=== PATIENT | male | born 1965 | race Caucasian/White ===

== ENCOUNTER 2018-04-29 17:04 | Inpatient (IN) ==
[2018-04-29] MEDS ORDERED: IOPAMIDOL 100 ML BOTTLE IV ONE (17:05)
[2018-04-29] MEDS ORDERED: LACTATED RINGERS 1,000 ML IV ONE (17:25)
[2018-04-29] MEDS ORDERED: ACETAMINOPHEN 1,000 MG/100 ML BOTTLE IV ONE (17:31)
[2018-04-29] MEDS ORDERED: ONDANSETRON 4 MG/2 ML VIAL IV ONE ×2 (17:32→19:09)
--- NOTE | 2018-04-29 17:34 | Emergency Department Note ---
Abdominal Pain HPI - General Chief Complaint: Abdominal Pain Stated Complaint: flank pain Time Seen by Provider: 04/29/18 17:29 Source: patient Mode of arrival: ambulatory Limitations: no limitations - History of Present Illness HPI Narrative: This patient complains of anterior abdominal pain for the last day. He says it feels similar to when he had a kidney stone he does not have flank pain or localized pain to one side or the other. He has had a lot of nausea and vomiting. No diarrhea. - Related Data Previous Rx's Medication Instructions Recorded Hydrocodone/APAP 7.5/325Mg [[place] 1 tab PO Q4HP PRN #20 tab 04/11/17 7.5-325Mg] Lisinopril [Zestril] 20 mg PO QDAY #30 tab 04/11/17 Tamsulosin [Flomax] 0.4 mg PO HS #20 cap 04/11/17 HYDROcodone/APAP 10/325MG [[place] 1 tab PO Q4H PRN #20 tab 02/19/18 10-325Mg] Promethazine [Phenergan] 25 mg PO Q4-6HP PRN #15 tab 02/19/18 hydrALAZINE [Apresoline] 10 mg PO TID #90 tab 02/19/18 Allergies Allergy/AdvReac Type Severity Reaction Status Date / Time From TUMS Allergy Unknown RED ITCHY Uncoded 02/18/15 23:51 RASH/SOB Review of Systems All systems ED: reviewed and negative except as stated. Abdominal Pain PMH - Past Medical History Medical history: Reports: hyperlipidemia (Most recently was normal), hypertension, other (Urinary calculus, passed, 2017). Denies: cancer, CVA, DM, myocardial infarction - Social History Smoking status: Never smoker Physical Exam Limitations: no limitations General appearance: alert Head: atraumatic Eye: Present: normal appearance ENT: normal exam Neck: Present: normal inspection Chest: Present: normal inspection Respiratory: Present: normal lung sounds bilaterally Cardiovascular: Present: regular rate, normal rhythm, normal heart sounds Abdominal: Present: soft, distention, tenderness, normal bowel sounds. Absent: guarding, rebound, rigidity Abdominal tenderness: Present: diffuse, mild Neurological: Present: alert Psychiatric: Present: normal affect, normal mood Skin: Present: warm, dry, intact Course Vital Signs Temperature 98.4 F 08/13/18 17:05 Pulse Rate 78 04/29/18 17:05 Respiratory Rate 22 04/29/18 17:05 Blood Pressure 185/105 04/29/18 17:05 Pulse Oximetry (%) 98 04/29/18 17:05 Temperature 98.4 F 04/29/18 17:05 Pulse Rate 77 04/29/18 19:51 Respiratory Rate 22 04/29/18 17:05 Blood Pressure 188/101 04/29/18 19:42 Pulse Oximetry (%) 89 L 04/29/18 19:51 Abdominal Pain - MDM Narrative Medical decision making narrative: This patient has a high-grade small bowel obstruction ileum. I discussed case with Dr. Garcia and he will be admitted to the hospital. - Lab Data Lab results reviewed: Yes I reviewed the patient's lab results. Result diagrams: 04/29/18 17:33 04/29/18 17:33 Lab Results 04/29/18 04/29/18 04/29/18 Range/Units 17:33 17:33 18:18 WBC 14.1 H (4.5-11.0) K/mcL RBC 6.28 H (4.50-5.90) M/mcL Hgb 18.6 H (13.5-16.5) g/dL Hct 55.1 H (41.0-55.0) % POC Hct 53.0 (41.0-55.0) % MCV 87.7 (80.0-100.0) fL MCH 29.6 (26.0-34.0) pg MCHC 33.7 (31.0-36.0) g/dL RDW 13.5 (11.5-14.5) % Plt Count 313 (140-440) K/mcL MPV 7.7 (7.4-10.4) fL Gran % 87.7 H (38.0-78.0) % Lymph % (Auto) 6.4 L (15.5-49.0) % [place] % (Auto) 4.8 (1.0-12.0) % Eos % (Auto) 1.1 (0.0-7.0) % Baso % (Auto) 0 (0.0-2.0) % Gran # 12.4 H (1.8-8.0) K/mcL Lymph # (Auto) 0.9 L (1.5-4.8) K/mcL [place] # (Auto) 0.7 (0.1-0.9) K/mcL Eos # (Auto) 0.2 (0.0-0.7) K/mcL Baso # (Auto) 0 (0.0-0.3) K/mcL POC Sodium 136 (133-145) mmol/L Sodium 135 (133-145) mmol/L POC Potassium 3.4 (3.3-5.1) mmol/L Potassium 3.2 L (3.3-5.1) mmol/L POC Chloride 94 L (96-108) mmol/L Chloride 90 L (96-108) mmol/L Carbon Dioxide 31 H (22-30) mmol/L POC Total CO2 30 (22-30) mmol/L Anion Gap 14.0 (8-16) POC BUN 14 (6-20) mg/dl BUN 12 (6-20) mg/dl Creatinine 1.0 (0.7-1.2) mg/dl POC Creatinine 1.0 (0.7-1.2) mg/dl GFR Calculation 86 Glucose 118 H (70-105) mg/dL POC Glucose 107 H (70-105) mg/dL Calcium 9.8 (8.6-10.4) mg/dl POC WB Ioniz Calcium 0.93 L (1.16-1.32) mmol/L Total Bilirubin 1.3 H (0.0-1.0) mg/dL AST 22 (0-37) U/l ALT 16 (0-40) U/l Alkaline Phosphatase 77 (39-117) U/L Total Protein 8.7 H (5.9-8.4) gm/dL Albumin 4.9 (3.2-5.2) gm/dL Globulin 3.8 H (2.2-3.7) gm/dL Albumin/Globulin Ratio 1.3 (1.0-2.3) Lipase 18 (7-60) U/L Urine Color Urine Appearance Urine pH (5.0-9.0) Ur Specific [place] (1.000-1.035) Urine Protein (NEG) mg/dL Urine Glucose (UA) (NEG) mg/dL Urine Ketones (NEG) mg/dL Urine Occult Blood (<0.03) mg/dL Urine Nitrate (NEG) Urine Bilirubin (NEG) mg/dL Urine Urobilinogen (NEG) mg/dL Ur Leukocyte Esterase (NEG) /uL Urine RBC (0-1) /hpf Urine WBC (0-4) /hpf Ur Squamous Epith Cells (0-4) /hpf Urine Bacteria (0) /hpf Urine Mucus (0) /hpf 04/29/18 Range/Units 19:10 WBC (4.5-11.0) K/mcL RBC (4.50-5.90) M/mcL Hgb (13.5-16.5) g/dL Hct (41.0-55.0) % POC Hct (41.0-55.0) % MCV (80.0-100.0) fL MCH (26.0-34.0) pg MCHC (31.0-36.0) g/dL RDW (11.5-14.5) % Plt Count (140-440) K/mcL MPV (7.4-10.4) fL Gran % (38.0-78.0) % Lymph % (Auto) (15.5-49.0) % [place] % (Auto) (1.0-12.0) % Eos % (Auto) (0.0-7.0) % Baso % (Auto) (0.0-2.0) % Gran # (1.8-8.0) K/mcL Lymph # (Auto) (1.5-4.8) K/mcL [place] # (Auto) (0.1-0.9) K/mcL Eos # (Auto) (0.0-0.7) K/mcL Baso # (Auto) (0.0-0.3) K/mcL POC Sodium (133-145) mmol/L Sodium (133-145) mmol/L POC Potassium (3.3-5.1) mmol/L Potassium (3.3-5.1) mmol/L POC Chloride (96-108) mmol/L Chloride (96-108) mmol/L Carbon Dioxide (22-30) mmol/L POC Total CO2 (22-30) mmol/L Anion Gap (8-16) POC BUN (6-20) mg/dl BUN (6-20) mg/dl Creatinine (0.7-1.2) mg/dl POC Creatinine (0.7-1.2) mg/dl GFR Calculation Glucose (70-105) mg/dL POC Glucose (70-105) mg/dL Calcium (8.6-10.4) mg/dl POC WB Ioniz Calcium (1.16-1.32) mmol/L Total Bilirubin (0.0-1.0) mg/dL AST (0-37) U/l ALT (0-40) U/l Alkaline Phosphatase (39-117) U/L Total Protein (5.9-8.4) gm/dL Albumin (3.2-5.2) gm/dL Globulin (2.2-3.7) gm/dL Albumin/Globulin Ratio (1.0-2.3) Lipase (7-60) U/L Urine Color Yellow Urine Appearance Clear Urine pH 7.0 (5.0-9.0) Ur Specific [place] 1.018 (1.000-1.035) Urine Protein 30 A (NEG) mg/dL Urine Glucose (UA) Negative (NEG) mg/dL Urine Ketones 5/tr A (NEG) mg/dL Urine Occult Blood Neg (<0.03) mg/dL Urine Nitrate Neg (NEG) Urine Bilirubin Neg (NEG) mg/dL Urine Urobilinogen Neg (NEG) mg/dL Ur Leukocyte Esterase Neg (NEG) /uL Urine RBC 2 H (0-1) /hpf Urine WBC 3 (0-4) /hpf Ur Squamous Epith Cells 0 (0-4) /hpf Urine Bacteria 0 (0) /hpf Urine Mucus Mod (0) /hpf - Radiology Data Radiology results reviewed: Yes I reviewed the patient's radiology results. Disposition Pt seen by [facility]/PA only: No Clinical Impression: Small bowel obstruction Disposition: Xfer As Inpt ([facility]) Condition: Good Time of Disposition: 20:06
[2018-04-29 18:10] LABS: Basophils # (Auto) 0 K/mcL (0.0-0.3); Basophils % (Auto) 0 % (0.0-2.0); Eosinophils # (Auto) 0.2 K/mcL (0.0-0.7); Eosinophils % (Auto) 1.1 % (0.0-7.0); Granulocytes % (Auto) 87.7 % (38.0-78.0); Lymphocytes # (Auto) 0.9 K/mcL (1.5-4.8); Lymphocytes % (Auto) 6.4 % (15.5-49.0); Mean Cell Volume 87.7 fL (80.0-100.0); Mean Corpuscular HGB Conc 33.7 g/dL (31.0-36.0); Mean Corpuscular Hemoglobin 29.6 pg (26.0-34.0); Monocytes # (Auto) 0.7 K/mcL (0.1-0.9); Monocytes % (Auto) 4.8 % (1.0-12.0); Platelet Count 313 K/mcL (140-440); RBC 6.28 M/mcL (4.50-5.90); Red Cell Distribution Width 13.5 % (11.5-14.5)
[2018-04-29 18:35] LABS: ALT/SGPT 16 U/l (0-40); Albumin 4.9 gm/dL (3.2-5.2); Albumin/Globulin Ratio 1.3 (1.0-2.3); Alkaline Phosphatase 77 U/L (39-117); Blood Urea Nitrogen 12 mg/dl (6-20); Lipase 18 U/L (7-60)
[2018-04-29] MEDS ORDERED: PROMETHAZINE 25 MG/ML VIAL IV ONE (19:09)
[2018-04-29] MEDS ORDERED: PIPERACILLIN SODIUM/TAZOBACTAM 3.375 GM in DEXTROSE 5% IN WATER 50 ML IV ONE (19:56)
[2018-04-29 20:01] LABS: Appearance,Urine CLEAR; Bacteria,Urine 0 /hpf (0); Bilirubin,Urine NEG (NEG); Color,Urine YELLOW; Glucose,Urine (UA) NEGATIVE (NEG); Leukocyte Esterase,Urine NEG /uL (NEG); Mucus,Urine MOD /hpf (0); Protein,Urine 30 mg/dL (NEG); Specific Gravity,Urine 1.018 (1.000-1.035); Urine Blood NEG mg/dL (<0.03); Urine RBC 2 /hpf (0-1); Urine Squamous Epithelial Cell 0 /hpf (0-4); Urine WBC 3 /hpf (0-4); Urobilinogen,Urine NEG (NEG)
[2018-04-29] MEDS ORDERED: ONDANSETRON 4 MG/2 ML VIAL IV PRN (21:14)
[2018-04-29] MEDS ORDERED: POTASSIUM CHLORIDE 40 MEQ in DEXTROSE 5% IN WATER 500 ML IV ONE (21:31)
[2018-04-29] MEDS ORDERED: BENZOCAINE 1 SPRAY BOTTLE TOPICAL PRN (21:42)
[2018-04-29] MEDS ORDERED: hydrALAZINE 20 MG/ML VIAL IV SCH (21:45)
[2018-04-29] MEDS: 0.9 % SODIUM CHLORIDE 1,000 ML IV SCH (22:05)
--- NOTE | 2018-04-29 22:11 | General Surg History&Physical ---
History of Present Illness Patient information: Note initiated : 04/29/18 at 10:07 pm Service Date, if different from initiated Date: [] Patient: Apolinar Nolen a 52 y/o M admitted on 04/29/18 for flank pain. Chief Complaint: [] HPI: Mr. Nolen is a 52 year old M admitted with possible distal small bowel obstruction. The patient had acute onset of right sided mid abdominal pain about 2:30 this morning. The pain increased in intensity. He later developed nausea and vomiting about noon and had 10 episodes of vomiting. He last had flatus about 6 AM. He has not had a bowel movement. He has no prior history of abdominal operations and he has no recent weight loss. Patient was seen in the emergency room with a tender abdomen. He was noted to have multiple dilated loops of small bowel which ends in the terminal ileum. There is gas and stool in the colon extending down to the rectum. Review of Systems - Genitourinary other (history of kidney stones) - Musculoskeletal back pain (history of chronic low back pain) Past History Past medical history: Multiple kidney stones Low back pain due to disc disease Hypertension Past surgical history: Microdisc surgery L3-4 level Past family history: Father age 77 due to complications of COPD Mother age 42 due to cirrhosis of the liver Past social history: Never tobacco use Occasional alcohol use Occasional marijuana use Medications and Allergies Home Medications Medication Instructions Recorded Confirmed Type Hydrocodone/APAP 7.5/325Mg [[place] 1 tab PO Q4HP PRN #20 tab 04/11/17 04/29/18 Rx 7.5-325Mg] Lisinopril [Zestril] 20 mg PO QDAY #30 tab 04/11/17 04/29/18 Rx HYDROcodone/APAP 10/325MG [[place] 1 tab PO Q4H PRN #20 tab 02/19/18 04/29/18 Rx 10-325Mg] Promethazine [Phenergan] 25 mg PO Q4-6HP PRN #15 tab 02/19/18 04/29/18 Rx hydrALAZINE [Apresoline] 10 mg PO TID #90 tab 02/19/18 04/29/18 Rx Allergies Allergy/AdvReac Type Severity Reaction Status Date / Time From TUMS Allergy Unknown RED ITCHY Uncoded 02/18/15 23:51 RASH/SOB Exam Temp Pulse Resp BP Pulse Ox 98.2 F 79 28 H 163/111 94 04/29/18 21:36 04/29/18 21:36 04/29/18 21:36 04/29/18 21:38 04/29/18 21:36 - General physical appearance well developed, well nourished, no distress - Eyes PERRL, normal ocular movement - ENT normal pinna, normal nares, normal mucosa, no hearing loss, no congestion - Head Head exam IM: Present: atraumatic, normocephalic - Neck no masses, no bruits, trachea midline, no lymphadectomy, no venous distension - Cardiovascular Cardiovascular exam IM: Present: normal rate and rhythm, RRR, +S1, +S2. Absent : JVD, tachycardia - Respiratory normal expansion, normal respiratory effort, clear to auscultation - Abdomen Abdomen: Present: soft, tender (tenderness and mid abdomen with mild distention ; good active bowel sounds; no palpable masses), bowel sounds Hernia: Present: none - Genitourinary Present: normal penis with no external lesions - Integumentary Present: no rash, no growths, no abnormal pigmentation - Neurologic Present: normal coordination, normal sensation - Musculoskeletal Present: normal gait, normal posture - Psychiatric Present: oriented to time, oriented to person, oriented to place, speech is normal, memory intact Assessment and Plan (1) Small bowel obstruction Nasogastric decompression IV hydration with saline IV analgesics Start Zosyn 3.375 g IV every 6 Reglan 10 mg IV every 6 Follow-up abdominal series in the morning Status: Acute (2) Hypertension, essential, benign Hydralazine 10 mg IV every 4 hours as needed for blood pressure control Status: Acute
[2018-04-29] MEDS ORDERED: hydrALAZINE 20 MG/ML VIAL IV PRN (22:14)
[2018-04-29] MEDS ORDERED: LORazepam 2 MG/ML VIAL IV PRN (22:17)
[2018-04-29] MEDS ORDERED: hydrALAZINE 20 MG/ML VIAL ONE (22:39)
[2018-04-29] MEDS: HYDROmorphone 2 MG/ML VIAL IV PRN (22:46)
[2018-04-29] MEDS: 0.9 % SODIUM CHLORIDE 10 ML SYRINGE IV SCH (22:51)
[2018-04-30] MEDS: METOCLOPRAMIDE 10 MG/2 ML VIAL IV SCH ×5 (00:19→23:35)
[2018-04-30] MEDS: HYDROmorphone 2 MG/ML VIAL IV PRN ×4 (03:35→23:39)
[2018-04-30] MEDS: PIPERACILLIN SODIUM/TAZOBACTAM 3.375 GM in DEXTROSE 5% IN WATER 50 ML IV SCH ×5 (04:00→23:37)
[2018-04-30] MEDS: 0.9 % SODIUM CHLORIDE 10 ML SYRINGE IV SCH ×4 (05:18→23:41)
[2018-04-30 06:47] LABS: Basophils # (Auto) 0 K/mcL (0.0-0.3); Basophils % (Auto) 0.1 % (0.0-2.0); Eosinophils # (Auto) 0.1 K/mcL (0.0-0.7); Eosinophils % (Auto) 0.7 % (0.0-7.0); Lymphocytes # (Auto) 0.7 K/mcL (1.5-4.8); Lymphocytes % (Auto) 5.2 % (15.5-49.0); Mean Cell Volume 88.3 fL (80.0-100.0); Mean Corpuscular HGB Conc 33.6 g/dL (31.0-36.0); Mean Corpuscular Hemoglobin 29.7 pg (26.0-34.0); Monocytes # (Auto) 0.9 K/mcL (0.1-0.9); Platelet Count 288 K/mcL (140-440); Red Cell Distribution Width 13.7 % (11.5-14.5)
--- NOTE | 2018-04-30 06:58 | XRay Report ---
CLINICAL INFORMATION: NG placement COMPARISON: None. FINDINGS: NG tube overlies the gastric fundus. Stomach, duodenum and jejunum are mildly dilated with the distal small bowel and colon are decompressed. No free air or soft tissue mass. Minimal residual contrast seen in the upper collecting systems from recent CT. IMPRESSION: Partial small bowel obstruction pattern - also noted on abdominal CT. NG tube overlying the gastric fundus. Consider advancing the tube 9 cm Interpreted and Authenticated by: Chris Finney 04/30/18
[2018-04-30] MEDS: PANTOPRAZOLE 40 MG VIAL IV SCH ×2 (07:05→18:04)
[2018-04-30 07:19] LABS: ALT/SGPT 13 U/l (0-40); Albumin 3.9 gm/dL (3.2-5.2); Albumin/Globulin Ratio 1.2 (1.0-2.3); Alkaline Phosphatase 62 U/L (39-117); Bilirubin,Direct < 0.2 mg/dL (0.0-0.3); Blood Urea Nitrogen 12 mg/dl (6-20); Gamma Glutamyl Transpeptidase 16 U/L (8-61); Uric Acid 5.9 mg/dL (2.5-8.0)
[2018-04-30 07:38] LABS: Erythrocyte Sedimentation Rate 7 mm/hr (0-15)
[2018-04-30] MEDS ORDERED: ENOXAPARIN 40 MG/0.4 ML SYRINGE SQ SCH (09:00)
--- NOTE | 2018-04-30 09:05 | Cat Scan Report ---
CLINICAL INFORMATION: Abdominal pain and distention COMPARISON: 02/18/[address] TECHNIQUE: Following enteric contrast, 80 cc of Isovue-300 were injected intravenously, and 60 seconds later, 0.625 mm helical slices were obtained from the mid heart through the subtrochanteric regions. Following reconstruction, 2.5 mm sagittal, coronal and axial reformatted images were processed and reviewed at bone, lung and soft tissue windows. Five minutes later, 0.625 mm helical slices were obtained from the mid heart through the kidneys and viewed at soft tissue windows.The exam was performed using radiation dose optimization techniques including, but not limited to, automated exposure control, adjustment of the mA and/or kV according to patient size and use of iterative reconstruction technique. FINDINGS: Lung bases show no abnormality. No effusion. Small hiatal hernia again noted. Images through the abdomen show minimal, stable fatty change within the liver. An 8 mm simple cyst in the subdiaphragmatic left hepatic lobe is unchanged - no significant hepatic abnormality. The gallbladder and bile ducts are normal - CBD is 5 mm. A 1 cm simple cyst anterior cortex mid right kidney is stable. A 5 mm nonobstructing stone inferior calyx the left kidney is again noted. Both adrenal glands, spleen, pancreas and aorta, including aortic branches, are normal in size, configuration and attenuation without focal lesion. Images through the pelvis show urinary bladder and prostate be normal. Small focal calcification in the left seminal vesicle demonstrates long-term stability. The stomach, duodenum and jejunum are moderately dilated to an abrupt transition point in the left lower quadrant (axial image 14, coronal image 61 and sagittal image 84). The small bowel and colon, distal to the transition point, are markedly decompressed. The appendix is unremarkable. Moderate free fluid in the deep true pelvis, intermesentery, perihepatic and perisplenic regions compatible with third spacing. No evidence of free intraperitoneal air. No adenopathy. Bone windows show no osseous abnormality IMPRESSION: 1. High-grade distal jejunal obstruction due to a stricture or adhesions in the left lower quadrant of the false pelvis. Moderate free intraperitoneal fluid compatible with third spacing. No free air. 2. Small hiatal hernia 3. 5 mm nonobstructing stone inferior calyx left kidney - stable Interpreted and Authenticated by: Chris Finney 04/30/18
--- NOTE | 2018-04-30 12:31 | General Surgery Progress Note ---
Subjective Patient reports: still having pain, no flatus, no bowel movement, afebrile Narrative: Note initiated : 04/30/18 at 12:29 pm Service Date, if different from initiated Date: [] Patient: Apolinar Nolen 52 y/o M admitted on 04/29/18 for Flank Pain/Small Bowel Obstruction. Chief Complaint: [Patient crampy abdominal pain throughout the night. There appears to be more gas in the colon, so a small bowel follow-through was done. After 3 hours. The contrast is still in the distal small bowel with decompressed terminal ileum. Patient is severely symptomatic and he is counseled for exploratory laparotomy for complete bowel obstruction.] Objective Temp Pulse Resp BP Pulse Ox 98.2 F 74 18 152/82 95 04/30/18 12:00 04/30/18 03:56 04/30/18 12:00 04/30/18 12:00 04/30/18 12:00 - Additional Data Intake & Output - Last 24 hours: Intake & Output 04/28/18 04/29/18 04/30/18 05/01/18 05:59 05:59 05:59 05:59 Intake Total 1200 / 1200 Output Total 500 / 500 400 / 400 Balance 700 / 700 -400 / -400 Weight 172 lb 8 oz - General physical appearance moderate distress, moderate pain - Eyes PERRL, normal ocular movement - ENT normal pinna, normal nares, normal mucosa, no hearing loss, no congestion - Neck no masses, no bruits, trachea midline, no lymphadectomy, no venous distension - Respiratory normal expansion, normal respiratory effort, clear to percussion, clear to auscultation - Cardiovascular Cardiovascular exam: Present: normal rate and rhythm, RRR, +S1, +S2, tachycardia. Absent: JVD, systolic murmur - Abdomen tender (tender lower abdomen and previous suprapubic and right lower quadrant; a few active bowel sounds; more prominent distention noted) - Integumentary no rash, no growths, no abnormal pigmentation - Neurologic normal coordination, normal sensation - Musculoskeletal normal gait, normal posture - Psychiatric oriented to time, oriented to person, oriented to place, speech is normal, memory intact - Labs 04/30/18 05:28 04/30/18 05:28 Diabetes panel 04/29/18 04/30/18 Range/Units 17:33 05:28 Sodium 135 135 (133-145) mmol/L Potassium 3.2 L 3.6 (3.3-5.1) mmol/L Chloride 90 L 96 (96-108) mmol/L Carbon Dioxide 31 H 27 (22-30) mmol/L BUN 12 12 (6-20) mg/dl Creatinine 1.0 1.0 (0.7-1.2) mg/dl Glucose 118 H 152 H (70-105) mg/dL Calcium 9.8 8.7 (8.6-10.4) mg/dl AST 22 17 (0-37) U/l ALT 16 13 (0-40) U/l Alkaline Phosphatase 77 62 (39-117) U/L Total Protein 8.7 H 7.1 (5.9-8.4) gm/dL Albumin 4.9 3.9 (3.2-5.2) gm/dL Triglycerides 67 (<150) mg/dl Calcium panel 04/29/18 04/30/18 Range/Units 17:33 05:28 Calcium 9.8 8.7 (8.6-10.4) mg/dl Phosphorus 3.6 (2.7-4.5) mg/dL Albumin 4.9 3.9 (3.2-5.2) gm/dL Pituitary panel 04/29/18 04/30/18 Range/Units 17:33 05:28 Sodium 135 135 (133-145) mmol/L Potassium 3.2 L 3.6 (3.3-5.1) mmol/L Chloride 90 L 96 (96-108) mmol/L Carbon Dioxide 31 H 27 (22-30) mmol/L BUN 12 12 (6-20) mg/dl Creatinine 1.0 1.0 (0.7-1.2) mg/dl Glucose 118 H 152 H (70-105) mg/dL Calcium 9.8 8.7 (8.6-10.4) mg/dl Adrenal panel 04/29/18 04/30/18 Range/Units 17:33 05:28 Sodium 135 135 (133-145) mmol/L Potassium 3.2 L 3.6 (3.3-5.1) mmol/L Chloride 90 L 96 (96-108) mmol/L Carbon Dioxide 31 H 27 (22-30) mmol/L BUN 12 12 (6-20) mg/dl Creatinine 1.0 1.0 (0.7-1.2) mg/dl Glucose 118 H 152 H (70-105) mg/dL Calcium 9.8 8.7 (8.6-10.4) mg/dl Total Bilirubin 1.3 H 1.2 H (0.0-1.0) mg/dL AST 22 17 (0-37) U/l ALT 16 13 (0-40) U/l Alkaline Phosphatase 77 62 (39-117) U/L Total Protein 8.7 H 7.1 (5.9-8.4) gm/dL Albumin 4.9 3.9 (3.2-5.2) gm/dL Assessment and Plan (1) Small bowel obstruction Status: Acute Assessment and plan: Patient has clinical total obstruction and is counseled for exploratory laparotomy. This has been scheduled and will be done later today. Current Visit: Yes (2) Hypertension, essential, benign Status: Acute Current Visit: No - Time Spent With Patient Total time spent is greater than 50% in coordination of care (as documented) at patient's floor/unit and/or counseling patient:
--- NOTE | 2018-04-30 12:45 | XRay Report ---
CLINICAL INFORMATION: Follow-up distal small bowel obstruction COMPARISON: None. FINDINGS: Stomach, duodenum and proximal jejunum are moderately dilated and contain air-fluid levels in the upright film. The distal small bowel and colon are relatively decompressed. No free air, soft tissue mass, organomegaly or pathologic calcification. NG tube overlies the GE junction IMPRESSION: High-grade partial small bowel obstruction of the distal jejunum. No change. NG tube overlying the GE junction - consider advancing tube 10 cm Interpreted and Authenticated by: Chris Finney 04/30/18
[2018-04-30] MEDS: 0.9 % SODIUM CHLORIDE 1,000 ML IV SCH ×3 (13:46→17:37)
[2018-04-30] MEDS ORDERED: DIATRIZOATE MEGLU/DIATRIZO SOD 30 ML BOTTLE PO ONE (13:54)
--- NOTE | 2018-04-30 14:01 | XRay Report ---
CLINICAL INFORMATION: Distal jejunal obstruction COMPARISON: Abdomen and pelvic CT from 04/29/2018. TECHNIQUE: Following service member films, water-soluble contrast was administered via NG tube and serial imaging was obtained for the next 2.5 hours. FINDINGS: The stomach, duodenum and multiple loops of jejunum are moderately dilated. A two hours and 30 minutes the ileum is not yet opacified. Findings are compatible with high-grade small bowel obstruction at the distal jejunal level IMPRESSION: High-grade small bowel obstruction at the the distal jejunal level. Transition point is in the left lower quadrant false pelvic region on CT Interpreted and Authenticated by: Chris Finney 04/30/18
[2018-04-30] MEDS ORDERED: NEOSTIGMINE 1 MG/ML VIAL IV ONE (14:55)
[2018-04-30] MEDS ORDERED: ONDANSETRON 4 MG/2 ML VIAL IV ONE (14:55)
[2018-04-30] MEDS ORDERED: LIDOCAINE HCL/PF 100 MG/5 ML SYRINGE IV ONE (14:55)
[2018-04-30] MEDS ORDERED: KETAMINE 100 MG/ML ML IV ONE (14:55)
[2018-04-30] MEDS ORDERED: NALBUPHINE 10 MG/ML AMPUL IV ONE (14:55)
[2018-04-30] MEDS ORDERED: DEXAMETHASONE 10 MG/ML VIAL IV ONE (14:55)
[2018-04-30] MEDS ORDERED: PROPOFOL 200 MG/20 ML VIAL IV ONE (14:55)
[2018-04-30] MEDS ORDERED: DOXAPRAM HCL 20 MG/ML IV ONE (14:55)
[2018-04-30] MEDS ORDERED: ROCURONIUM 10 MG/ML ML IV ONE (14:55)
[2018-04-30] MEDS ORDERED: fentaNYL 100 MCG/2 ML VIAL IV ONE (14:55)
[2018-04-30] MEDS ORDERED: MIDAZOLAM 2 MG/2 ML VIAL IV ONE (14:55)
[2018-04-30] MEDS ORDERED: GLYCOPYRROLATE 0.2 MG/ML VIAL IV ONE (14:55)
--- NOTE | 2018-04-30 15:55 | Brief Operative Note ---
Date of procedure: 04/30/18 Pre-op diagnosis: SMALL BOWEL OBSTRUCTION Post-op diagnosis: other (SMALL BOWEL OBSTRUCTION DUE TO ADHESIONS) Procedure: SMALL BOWEL ADHESIOLYSIS Grafts/Implants: Yes Anesthesia: GETA Findings: SINGLE ADHESIVE BAND IN MID JEJUNUM Complications: none Surgeon: Nadeen Garcia Estimated blood loss (cc): 10 Specimens Removed/Pathology: none sent Condition: stable Disposition: PACU
[2018-04-30] MEDS ORDERED: ONDANSETRON 4 MG/2 ML VIAL IV PRN (17:25)
[2018-04-30] MEDS ORDERED: LORazepam 2 MG/ML VIAL IV PRN (17:25)
[2018-04-30] MEDS: hydrALAZINE 20 MG/ML VIAL IV PRN ×2 (19:28→23:36)
[2018-04-30] MEDS: BENZOCAINE 1 SPRAY BOTTLE TOPICAL PRN (23:45)
[2018-05-01] MEDS: 0.9 % SODIUM CHLORIDE 1,000 ML IV SCH ×3 (02:07→17:41)
[2018-05-01] MEDS: HYDROmorphone 2 MG/ML VIAL IV PRN ×3 (04:35→14:33)
[2018-05-01] MEDS: hydrALAZINE 20 MG/ML VIAL IV PRN ×2 (05:59→17:55)
[2018-05-01] MEDS: PIPERACILLIN SODIUM/TAZOBACTAM 3.375 GM in DEXTROSE 5% IN WATER 50 ML IV SCH ×3 (05:59→17:42)
[2018-05-01] MEDS: METOCLOPRAMIDE 10 MG/2 ML VIAL IV SCH ×3 (05:59→17:40)
[2018-05-01] MEDS: 0.9 % SODIUM CHLORIDE 10 ML SYRINGE IV SCH ×3 (06:00→22:02)
[2018-05-01 07:51] LABS: Basophils # (Auto) 0 K/mcL (0.0-0.3); Basophils % (Auto) 0.1 % (0.0-2.0); Eosinophils # (Auto) 0.1 K/mcL (0.0-0.7); Eosinophils % (Auto) 0.6 % (0.0-7.0); Granulocytes % (Auto) 87.5 % (38.0-78.0); Lymphocytes # (Auto) 0.7 K/mcL (1.5-4.8); Lymphocytes % (Auto) 5.4 % (15.5-49.0); Mean Cell Volume 87.6 fL (80.0-100.0); Mean Corpuscular HGB Conc 33.8 g/dL (31.0-36.0); Mean Corpuscular Hemoglobin 29.6 pg (26.0-34.0); Monocytes # (Auto) 0.8 K/mcL (0.1-0.9); Monocytes % (Auto) 6.4 % (1.0-12.0); Platelet Count 266 K/mcL (140-440); Red Cell Distribution Width 13.6 % (11.5-14.5)
[2018-05-01] MEDS: PANTOPRAZOLE 40 MG VIAL IV SCH ×3 (08:14→17:40)
--- NOTE | 2018-05-01 08:23 | Operative Note ---
DATE OF OPERATION: 04/30/2018 PREOPERATIVE DIAGNOSIS: Small bowel obstruction. POSTOPERATIVE DIAGNOSIS: Small bowel obstruction due to adhesions. PROCEDURE: Exploratory laparotomy with small bowel adhesiolysis. SURGEON: Nadeen Garcia MD FINDINGS: Adhesions in the mid jejunum causing a near total obstruction with normal decompressed distal bowel and markedly dilated proximal bowel with a large volume of fluid in the stomach. DESCRIPTION OF PROCEDURE: Under general anesthesia, the patient's abdomen was prepped and draped in a sterile field. Time-out procedure was carried out as per protocol. Lower midline incision was made. A large volume of fluid was encountered upon entering the peritoneal cavity. This fluid was clear. The small bowel was gently pulled through the open incision and there were two distinct sizes of small bowel with some major dilation of the proximal bowel and total decompression of the distal bowel. The bowel was started at the ileocecal valve and followed proximally. At about mid gut level there was an adhesion that was lysed and this released the area of obstruction. The bowel proximal to this was dilated and edematous. This was followed to the ligament of Treitz. No other pathology was noted. The nasogastric tube was positioned in the stomach and 2000 mL of liquid was removed. Sponge, needle, instrument blade counts were verified as correct. The mesentery was inspected and was normal. The retroperitoneum appeared to be normal. The colon was normal to palpation. The fascia and peritoneum were closed with a running locking #1 Prolene. Subcutaneous tissue was closed with running 2-0 Monocryl. Skin was closed with bang. Tegaderm dressing was placed. The patient tolerated the procedure well. He was awakened, transferred to a bed and taken to the postanesthetic care unit in stable, satisfactory condition. LCS:ambreen Job ID: [id number] Doc ID: [id number] Nadeen Garcia M.D.
[2018-05-01 09:06] LABS: Basophils # (Auto) 0 K/mcL (0.0-0.3); Basophils % (Auto) 0.1 % (0.0-2.0); Eosinophils # (Auto) 0 K/mcL (0.0-0.7); Eosinophils % (Auto) 0.1 % (0.0-7.0); Granulocytes % (Auto) 84.6 % (38.0-78.0); Lymphocytes # (Auto) 0.9 K/mcL (1.5-4.8); Lymphocytes % (Auto) 7.2 % (15.5-49.0); Mean Cell Volume 89.7 fL (80.0-100.0); Mean Corpuscular HGB Conc 33.1 g/dL (31.0-36.0); Mean Corpuscular Hemoglobin 29.7 pg (26.0-34.0); Platelet Count 301 K/mcL (140-440); RBC 5.46 M/mcL (4.50-5.90); Red Cell Distribution Width 14.1 % (11.5-14.5)
[2018-05-01 09:35] LABS: ALT/SGPT 10 U/l (0-40); Albumin 3.5 gm/dL (3.2-5.2); Albumin/Globulin Ratio 1.3 (1.0-2.3); Alkaline Phosphatase 46 U/L (39-117); Bilirubin,Direct < 0.2 mg/dL (0.0-0.3); Blood Urea Nitrogen 18 mg/dl (6-20); Gamma Glutamyl Transpeptidase 9 U/L (8-61)
--- NOTE | 2018-05-01 17:50 | General Surgery Progress Note ---
Subjective Patient reports: feels better, still having pain, no flatus, no bowel movement, afebrile Narrative: Note initiated : 05/01/18 at 5:49 pm Service Date, if different from initiated Date: [] Patient: Apolinar Nolen 52 y/o M admitted on 04/29/18 for Laparotomy Exploration General, Small Bowel Obstru. Chief Complaint: [patient is stable. He has anticipated incisional pain but it is well controlled with analgesics. He does not have any chest discomfort or shortness of breath. He has not had flatus yet. He still had significant NG output. White blood count is 12.4. Electrolytes are normal.] Objective Temp Pulse Resp BP Pulse Ox 99.4 F H 105 H 16 175/92 90 05/01/18 14:34 05/01/18 14:34 05/01/18 14:34 05/01/18 14:34 05/01/18 14:34 - Additional Data Intake & Output - Last 24 hours: Intake & Output 04/29/18 04/30/18 05/01/18 05/02/18 05:59 05:59 05:59 05:59 Intake Total 1200 / 1200 4104 / 4104 2958 / 2958 Output Total 500 / 500 2019 / 2019 Balance 700 / 700 2084 / 2084 2958 / 2958 Weight 172 lb 8 oz 173 lb - General physical appearance well developed, well nourished, moderate distress, moderate pain - Eyes PERRL, normal ocular movement - ENT normal pinna, normal nares, normal mucosa, no hearing loss, no congestion - Neck no masses, no bruits, trachea midline, no venous distension - Respiratory normal expansion, normal respiratory effort, clear to percussion, clear to auscultation - Cardiovascular Cardiovascular exam: Present: normal rate and rhythm, RRR, +S1, +S2. Absent: JVD, tachycardia - Abdomen tender (, voiding well), bowel sounds (present), surgical scars (none), masses ( none) - Integumentary no rash, no growths, no abnormal pigmentation - Neurologic normal coordination, normal sensation - Musculoskeletal normal gait, normal posture - Psychiatric oriented to time, oriented to person, oriented to place, speech is normal, memory intact - Labs 05/01/18 07:30 05/01/18 07:30 Diabetes panel 05/01/18 Range/Units 07:30 Sodium 136 (133-145) mmol/L Potassium 4.1 (3.3-5.1) mmol/L Chloride 98 (96-108) mmol/L Carbon Dioxide 27 (22-30) mmol/L BUN 18 (6-20) mg/dl Creatinine 1.2 (0.7-1.2) mg/dl Glucose 116 H (70-105) mg/dL Calcium 8.6 (8.6-10.4) mg/dl AST 21 (0-37) U/l ALT 10 (0-40) U/l Alkaline Phosphatase 46 (39-117) U/L Total Protein 6.2 (5.9-8.4) gm/dL Albumin 3.5 (3.2-5.2) gm/dL Triglycerides 56 (<150) mg/dl Calcium panel 05/01/18 Range/Units 07:30 Calcium 8.6 (8.6-10.4) mg/dl Phosphorus 3.4 (2.7-4.5) mg/dL Albumin 3.5 (3.2-5.2) gm/dL Pituitary panel 05/01/18 Range/Units 07:30 Sodium 136 (133-145) mmol/L Potassium 4.1 (3.3-5.1) mmol/L Chloride 98 (96-108) mmol/L Carbon Dioxide 27 (22-30) mmol/L BUN 18 (6-20) mg/dl Creatinine 1.2 (0.7-1.2) mg/dl Glucose 116 H (70-105) mg/dL Calcium 8.6 (8.6-10.4) mg/dl Adrenal panel 05/01/18 Range/Units 07:30 Sodium 136 (133-145) mmol/L Potassium 4.1 (3.3-5.1) mmol/L Chloride 98 (96-108) mmol/L Carbon Dioxide 27 (22-30) mmol/L BUN 18 (6-20) mg/dl Creatinine 1.2 (0.7-1.2) mg/dl Glucose 116 H (70-105) mg/dL Calcium 8.6 (8.6-10.4) mg/dl Total Bilirubin 0.9 (0.0-1.0) mg/dL AST 21 (0-37) U/l ALT 10 (0-40) U/l Alkaline Phosphatase 46 (39-117) U/L Total Protein 6.2 (5.9-8.4) gm/dL Albumin 3.5 (3.2-5.2) gm/dL Assessment and Plan (1) Small bowel obstruction Status: Acute Assessment and plan: patient is clinically stable Current Visit: Yes (2) Hypertension, essential, benign Status: Acute Current Visit: No - Time Spent With Patient Total time spent is greater than 50% in coordination of care (as documented) at patient's floor/unit and/or counseling patient:
[2018-05-01] MEDS: ACETAMINOPHEN 1,000 MG/100 ML BOTTLE IV SCH (20:12)
[2018-05-01] MEDS: BENZOCAINE 1 SPRAY BOTTLE TOPICAL PRN (20:17)
[2018-05-02] MEDS: METOCLOPRAMIDE 10 MG/2 ML VIAL IV SCH ×5 (00:15→23:45)
[2018-05-02] MEDS: hydrALAZINE 20 MG/ML VIAL IV PRN ×3 (00:15→14:22)
[2018-05-02] MEDS: PIPERACILLIN SODIUM/TAZOBACTAM 3.375 GM in DEXTROSE 5% IN WATER 50 ML IV SCH ×5 (00:22→23:45)
[2018-05-02] MEDS: ACETAMINOPHEN 1,000 MG/100 ML BOTTLE IV SCH ×4 (02:45→20:06)
[2018-05-02] MEDS: 0.9 % SODIUM CHLORIDE 10 ML SYRINGE IV SCH ×3 (04:29→20:08)
[2018-05-02] MEDS: 0.9 % SODIUM CHLORIDE 1,000 ML IV SCH ×3 (04:29→16:08)
[2018-05-02 06:51] LABS: Basophils # (Auto) 0 K/mcL (0.0-0.3); Basophils % (Auto) 0.1 % (0.0-2.0); Eosinophils # (Auto) 0.1 K/mcL (0.0-0.7); Eosinophils % (Auto) 0.9 % (0.0-7.0); Granulocytes % (Auto) 82.3 % (38.0-78.0); Lymphocytes # (Auto) 0.7 K/mcL (1.5-4.8); Lymphocytes % (Auto) 7.3 % (15.5-49.0); Mean Corpuscular HGB Conc 33.6 g/dL (31.0-36.0); Mean Corpuscular Hemoglobin 29.9 pg (26.0-34.0); Monocytes # (Auto) 0.9 K/mcL (0.1-0.9); Monocytes % (Auto) 9.4 % (1.0-12.0); Platelet Count 238 K/mcL (140-440); Red Cell Distribution Width 14.3 % (11.5-14.5)
[2018-05-02 07:07] LABS: ALT/SGPT 8 U/l (0-40); Albumin 3.2 gm/dL (3.2-5.2); Albumin/Globulin Ratio 1.1 (1.0-2.3); Alkaline Phosphatase 44 U/L (39-117); Bilirubin,Direct 0.2 mg/dL (0.0-0.3); Blood Urea Nitrogen 16 mg/dl (6-20); Gamma Glutamyl Transpeptidase 12 U/L (8-61)
[2018-05-02] MEDS ORDERED: POTASSIUM PHOSPHATE 40 MEQ in DEXTROSE 5% IN WATER 500 ML IV ONE (07:54)
[2018-05-02] MEDS: PANTOPRAZOLE 40 MG VIAL IV SCH ×2 (11:55→18:24)
--- NOTE | 2018-05-02 17:49 | General Surgery Progress Note ---
Subjective Patient reports: feels better, pain is less, flatus, afebrile Narrative: Note initiated : 05/02/18 at 5:49 pm Service Date, if different from initiated Date: [] Patient: Apolinar Nolen 52 y/o M admitted on 04/29/18 for Laparotomy Exploration General, Small Bowel Obstru. Chief Complaint: [patient continues to improve.. He has a small amount of flatus but no bowel movements. His pain is adequately controlled. He denies chest pain or shortness of breath.. his white blood count is normal. Chemistry panel is normal except for low phosphorus.] Objective Temp Pulse Resp BP Pulse Ox 98.3 F 104 H 14 168/87 94 05/02/18 16:00 05/02/18 16:00 05/02/18 16:00 05/02/18 16:00 05/02/18 16:00 - Additional Data Intake & Output - Last 24 hours: Intake & Output 04/30/18 05/01/18 05/02/18 05/03/18 05:59 05:59 05:59 05:59 Intake Total 1200 / 1200 4104 / 4104 4258 / 4258 1500 / 1500 Output Total 500 / 500 2019 / 2020 1930 / 1930 1350 / 1350 Balance 700 / 700 2084 / 2084 2328 / 2328 150 / 150 Weight 172 lb 8 oz 173 lb 173 lb - General physical appearance well developed, well nourished, moderate pain - Eyes PERRL, normal ocular movement - ENT normal pinna, normal nares, normal mucosa, no hearing loss, no congestion - Neck no masses, no bruits, trachea midline, no lymphadectomy, no venous distension - Respiratory normal expansion, normal respiratory effort, clear to auscultation - Cardiovascular Cardiovascular exam: Present: normal rate and rhythm, RRR, +S1, +S2. Absent: JVD, tachycardia - Abdomen tender (mild incisional tenderness; good active bowel sounds), bowel sounds ( present), surgical scars (none), masses (none) - Integumentary no rash, no growths, no abnormal pigmentation - Neurologic normal coordination, normal sensation - Musculoskeletal normal gait, normal posture - Psychiatric oriented to time, oriented to person, oriented to place, speech is normal, memory intact - Labs 05/04/18 05:07 05/04/18 05:07 Diabetes panel 05/02/18 Range/Units 05:00 Sodium 138 (133-145) mmol/L Potassium 3.7 (3.3-5.1) mmol/L Chloride 103 (96-108) mmol/L Carbon Dioxide 24 (22-30) mmol/L BUN 16 (6-20) mg/dl Creatinine 1.0 (0.7-1.2) mg/dl Glucose 99 (70-105) mg/dL Calcium 8.3 L (8.6-10.4) mg/dl AST 13 (0-37) U/l ALT 8 (0-40) U/l Alkaline Phosphatase 44 (39-117) U/L Total Protein 6.1 (5.9-8.4) gm/dL Albumin 3.2 (3.2-5.2) gm/dL Triglycerides 79 (<150) mg/dl Calcium panel 05/02/18 Range/Units 05:00 Calcium 8.3 L (8.6-10.4) mg/dl Phosphorus 1.8 L (2.7-4.5) mg/dL Albumin 3.2 (3.2-5.2) gm/dL Pituitary panel 05/02/18 Range/Units 05:00 Sodium 138 (133-145) mmol/L Potassium 3.7 (3.3-5.1) mmol/L Chloride 103 (96-108) mmol/L Carbon Dioxide 24 (22-30) mmol/L BUN 16 (6-20) mg/dl Creatinine 1.0 (0.7-1.2) mg/dl Glucose 99 (70-105) mg/dL Calcium 8.3 L (8.6-10.4) mg/dl Adrenal panel 05/02/18 Range/Units 05:00 Sodium 138 (133-145) mmol/L Potassium 3.7 (3.3-5.1) mmol/L Chloride 103 (96-108) mmol/L Carbon Dioxide 24 (22-30) mmol/L BUN 16 (6-20) mg/dl Creatinine 1.0 (0.7-1.2) mg/dl Glucose 99 (70-105) mg/dL Calcium 8.3 L (8.6-10.4) mg/dl Total Bilirubin 1.0 (0.0-1.0) mg/dL AST 13 (0-37) U/l ALT 8 (0-40) U/l Alkaline Phosphatase 44 (39-117) U/L Total Protein 6.1 (5.9-8.4) gm/dL Albumin 3.2 (3.2-5.2) gm/dL Assessment and Plan (1) Small bowel obstruction Status: Acute Assessment and plan: patient is clinically stable Current Visit: Yes (2) Hypertension, essential, benign Status: Acute Current Visit: No - Time Spent With Patient Total time spent is greater than 50% in coordination of care (as documented) at patient's floor/unit and/or counseling patient:
[2018-05-03] MEDS: 0.9 % SODIUM CHLORIDE 1,000 ML IV SCH ×3 (01:46→22:39)
[2018-05-03] MEDS: hydrALAZINE 20 MG/ML VIAL IV PRN ×4 (02:02→16:56)
[2018-05-03] MEDS: ACETAMINOPHEN 1,000 MG/100 ML BOTTLE IV SCH ×4 (02:03→20:43)
[2018-05-03] MEDS: METOCLOPRAMIDE 10 MG/2 ML VIAL IV SCH ×3 (05:29→18:29)
[2018-05-03] MEDS: 0.9 % SODIUM CHLORIDE 10 ML SYRINGE IV SCH ×3 (05:31→20:44)
[2018-05-03] MEDS: PIPERACILLIN SODIUM/TAZOBACTAM 3.375 GM in DEXTROSE 5% IN WATER 50 ML IV SCH ×3 (05:56→17:46)
[2018-05-03 06:48] LABS: Basophils # (Auto) 0 K/mcL (0.0-0.3); Basophils % (Auto) 0.4 % (0.0-2.0); Eosinophils # (Auto) 0.3 K/mcL (0.0-0.7); Eosinophils % (Auto) 4.4 % (0.0-7.0); Granulocytes % (Auto) 76.6 % (38.0-78.0); Lymphocytes # (Auto) 0.7 K/mcL (1.5-4.8); Lymphocytes % (Auto) 9.1 % (15.5-49.0); Mean Cell Volume 89.3 fL (80.0-100.0); Mean Corpuscular HGB Conc 33.5 g/dL (31.0-36.0); Monocytes # (Auto) 0.7 K/mcL (0.1-0.9); Monocytes % (Auto) 9.5 % (1.0-12.0); Platelet Count 263 K/mcL (140-440); Red Cell Distribution Width 13.9 % (11.5-14.5)
[2018-05-03 07:14] LABS: ALT/SGPT 8 U/l (0-40); Albumin 3.4 gm/dL (3.2-5.2); Albumin/Globulin Ratio 1.1 (1.0-2.3); Alkaline Phosphatase 42 U/L (39-117); Bilirubin,Direct 0.2 mg/dL (0.0-0.3); Blood Urea Nitrogen 11 mg/dl (6-20); Gamma Glutamyl Transpeptidase 15 U/L (8-61); Uric Acid 2.5 mg/dL (2.5-8.0)
[2018-05-03] MEDS: PANTOPRAZOLE 40 MG VIAL IV SCH ×2 (07:59→16:55)
--- NOTE | 2018-05-03 14:55 | General Surgery Progress Note ---
Subjective Patient reports: feels better, pain is less, flatus, bowel movement, afebrile Narrative: Note initiated : 05/03/18 at 2:54 pm Service Date, if different from initiated Date: [] Patient: Apolinar Nolen 52 y/o M admitted on 04/29/18 for Laparotomy Exploration General, Small Bowel Obstru. Chief Complaint: [patient is doing well. His pain is improved. He had flatus and bowel movement. No complaint of nausea.white blood count is 7.5. l phosphorous 1.9] Objective Temp Pulse Resp BP Pulse Ox 97.8 F 93 H 16 185/97 94 05/03/18 11:37 05/03/18 11:37 05/03/18 11:37 05/03/18 11:37 05/03/18 11:37 - Additional Data Intake & Output - Last 24 hours: Intake & Output 05/01/18 05/02/18 05/03/18 05/04/18 05:59 05:59 05:59 05:59 Intake Total 4104 / 4104 4258 / 4258 2800 / 2800 1200 / 1200 Output Total 2019 / 2019 1930 / 1930 3575 / 3575 775 / 775 Balance 2084 / 2084 2328 / 2328 -775 / -775 425 / 425 Weight 173 lb 173 lb 170 lb 170 lb - General physical appearance well developed, well nourished, no distress - Eyes PERRL, normal ocular movement - ENT normal pinna, normal nares, normal mucosa, no hearing loss, no congestion - Neck no masses, no bruits, trachea midline, no venous distension - Respiratory normal expansion, normal respiratory effort, clear to auscultation - Cardiovascular Cardiovascular exam: Present: normal rate and rhythm, RRR, +S1, +S2. Absent: JVD, tachycardia - Abdomen tender (mild tenderness in approximately), bowel sounds (present), surgical scars (none), masses (none) - Rectum normal sphincter tone, no hemorrhoids, no tenderness, no masses, no bleeding - Integumentary no rash, no growths, no abnormal pigmentation - Neurologic normal coordination, normal sensation - Musculoskeletal normal gait, normal posture - Psychiatric oriented to time, oriented to person, oriented to place, speech is normal, memory intact - Labs 05/03/18 05:39 05/03/18 05:39 Diabetes panel 05/03/18 Range/Units 05:39 Sodium 134 (133-145) mmol/L Potassium 3.3 (3.3-5.1) mmol/L Chloride 101 (96-108) mmol/L Carbon Dioxide 22 (22-30) mmol/L BUN 11 (6-20) mg/dl Creatinine 0.7 (0.7-1.2) mg/dl Glucose 91 (70-105) mg/dL Calcium 8.4 L (8.6-10.4) mg/dl AST 13 (0-37) U/l ALT 8 (0-40) U/l Alkaline Phosphatase 42 (39-117) U/L Total Protein 6.4 (5.9-8.4) gm/dL Albumin 3.4 (3.2-5.2) gm/dL Triglycerides 86 (<150) mg/dl Calcium panel 05/03/18 Range/Units 05:39 Calcium 8.4 L (8.6-10.4) mg/dl Phosphorus 1.9 L (2.7-4.5) mg/dL Albumin 3.4 (3.2-5.2) gm/dL Pituitary panel 05/03/18 Range/Units 05:39 Sodium 134 (133-145) mmol/L Potassium 3.3 (3.3-5.1) mmol/L Chloride 101 (96-108) mmol/L Carbon Dioxide 22 (22-30) mmol/L BUN 11 (6-20) mg/dl Creatinine 0.7 (0.7-1.2) mg/dl Glucose 91 (70-105) mg/dL Calcium 8.4 L (8.6-10.4) mg/dl Adrenal panel 05/03/18 Range/Units 05:39 Sodium 134 (133-145) mmol/L Potassium 3.3 (3.3-5.1) mmol/L Chloride 101 (96-108) mmol/L Carbon Dioxide 22 (22-30) mmol/L BUN 11 (6-20) mg/dl Creatinine 0.7 (0.7-1.2) mg/dl Glucose 91 (70-105) mg/dL Calcium 8.4 L (8.6-10.4) mg/dl Total Bilirubin 0.9 (0.0-1.0) mg/dL AST 13 (0-37) U/l ALT 8 (0-40) U/l Alkaline Phosphatase 42 (39-117) U/L Total Protein 6.4 (5.9-8.4) gm/dL Albumin 3.4 (3.2-5.2) gm/dL Assessment and Plan (1) Small bowel obstruction Status: Acute Assessment and plan: patient is clinically stable . Discontinue nasogastric tube. Full liquid diet Current Visit: Yes (2) Hypertension, essential, benign Status: Acute Current Visit: No - Time Spent With Patient Total time spent is greater than 50% in coordination of care (as documented) at patient's floor/unit and/or counseling patient:
[2018-05-03] MEDS ORDERED: POTASSIUM PHOSPHATE 40 MEQ in DEXTROSE 5% IN WATER 500 ML IV ONE (15:00)
[2018-05-03] MEDS ORDERED: LISINOPRIL 10 MG TABLET ONE (17:47)
[2018-05-03] MEDS: hydrALAZINE 10 MG TABLET PO SCH (20:37)
[2018-05-04] MEDS: PIPERACILLIN SODIUM/TAZOBACTAM 3.375 GM in DEXTROSE 5% IN WATER 50 ML IV SCH ×3 (00:06→11:41)
[2018-05-04] MEDS: METOCLOPRAMIDE 10 MG/2 ML VIAL IV SCH ×2 (00:06→06:13)
[2018-05-04] MEDS: ACETAMINOPHEN 1,000 MG/100 ML BOTTLE IV SCH ×2 (02:16→10:47)
[2018-05-04] MEDS: 0.9 % SODIUM CHLORIDE 1,000 ML IV SCH ×2 (02:16→08:16)
[2018-05-04 05:51] LABS: Basophils # (Auto) 0 K/mcL (0.0-0.3); Basophils % (Auto) 0.4 % (0.0-2.0); Eosinophils # (Auto) 0.5 K/mcL (0.0-0.7); Eosinophils % (Auto) 7.4 % (0.0-7.0); Granulocytes % (Auto) 69.9 % (38.0-78.0); Lymphocytes # (Auto) 0.7 K/mcL (1.5-4.8); Lymphocytes % (Auto) 11.5 % (15.5-49.0); Mean Cell Volume 88.7 fL (80.0-100.0); Mean Corpuscular HGB Conc 33.4 g/dL (31.0-36.0); Mean Corpuscular Hemoglobin 29.7 pg (26.0-34.0); Monocytes # (Auto) 0.7 K/mcL (0.1-0.9); Monocytes % (Auto) 10.8 % (1.0-12.0); Platelet Count 286 K/mcL (140-440); RBC 4.71 M/mcL (4.50-5.90); Red Cell Distribution Width 13.5 % (11.5-14.5)
[2018-05-04] MEDS: 0.9 % SODIUM CHLORIDE 10 ML SYRINGE IV SCH (06:13)
[2018-05-04 06:20] LABS: ALT/SGPT 12 U/l (0-40); Albumin 3.3 gm/dL (3.2-5.2); Albumin/Globulin Ratio 1.2 (1.0-2.3); Alkaline Phosphatase 40 U/L (39-117); Bilirubin,Direct 0.2 mg/dL (0.0-0.3); Blood Urea Nitrogen 13 mg/dl (6-20); Gamma Glutamyl Transpeptidase 32 U/L (8-61); Uric Acid 2.7 mg/dL (2.5-8.0)
[2018-05-04] MEDS ORDERED: PANTOPRAZOLE 40 MG TABLET PO SCH (07:30)
[2018-05-04] MEDS: hydrALAZINE 10 MG TABLET PO SCH (10:51)
--- NOTE | 2018-05-04 12:07 | Discharge Summary ---
Providers - Providers Patient information: Note initiated : 05/04/18 at 12:04 pm Service Date, if different from initiated Date: [] Patient: Apolinar Nolen 52 y/o M admitted on 04/29/18 for Laparotomy Exploration General, Small Bowel Obstru. Chief Complaint: [] Date of admission: 04/29/18 Discharge date: 05/04/18 Attending physician: Nadeen Garcia Hospitalization Hospital course: 52-year-old male admitted with history of severe abdominal pain, nausea and vomiting. He had clinical evidence of small bowel obstruction. He did not improve with nasogastric decompression. He was explored and was found to have adhesions block in the midportion of the small bowel. adhesio lysis was done and he slowly without return of intestinal activity. His diet was advanced. He is having multiple bowel movements, passing large Volume of flatus without difficulty.. He tolerated full liquid diet. Patient is stable for discharge and will slowly advance his diet over the next 2 days.. He will follow up with me in the office Discharge diagnosis: small bowel obstruction Secondary discharge diagnosis: . Intestinal adhesions Reason for admission: abdominal pain, nausea Procedures: Exploratory laparotomy with adhesiolysis Complications: none Exam Temp Pulse Resp BP Pulse Ox 97.9 F 84 18 159/94 95 05/04/18 11:37 05/04/18 04:00 05/04/18 11:37 05/04/18 11:37 05/04/18 11:37 - General physical appearance well developed, well nourished, no distress - Eyes PERRL, normal ocular movement - ENT normal pinna, normal nares, normal mucosa, no hearing loss, no congestion - Head Head exam IM: Present: atraumatic, normocephalic - Neck no masses, no bruits, trachea midline, no lymphadectomy, no venous distension - Cardiovascular Cardiovascular exam IM: Present: normal rate and rhythm - Respiratory normal expansion, normal respiratory effort, clear to percussion, clear to auscultation - Abdomen Abdomen: Present: soft, tender (bowel tenderness along the incision;;;; good active bowel sounds), bowel sounds Hernia: Present: none - Genitourinary Present: normal penis with no external lesions - Integumentary Present: no rash, no growths, no abnormal pigmentation - Neurologic Present: normal coordination, normal sensation - Musculoskeletal Present: normal gait, normal posture - Psychiatric Present: oriented to time, oriented to person, oriented to place, speech is normal, memory intact Discharge Plan - Patient/Caregiver Discharge Instructions Activity: increase activity as tolerated Diet: Regular Diet - Follow up Plan Disposition: Home, Self-Care Prognosis: Good Rehab Potential: Good I certify that the patient requires SNF services.: No Overall status at discharge: patient is not back to baseline Pending Studies Resuscitation Status Full Code Diet Full Liquid Diet Start SunMay 03 1453 Benzocaine (Cetacaine) 1 spray TOPICAL 3-4XD PRN PRN Reason: Pain Stop: 05/05/18 21:41 Last Admin: 05/01/18 20:17 Dose: 1 spray Admin: 04/30/18 23:45 Dose: 1 spray Hydralazine HCl (Apresoline) 10 mg PO TID [facility] Last Admin: 05/04/18 10:51 Dose: 10 mg Admin: 05/03/18 20:37 Dose: 10 mg Hydromorphone HCl (Dilaudid) 1 mg IV Q2HP PRN PRN Reason: PAIN LEVEL > 6 Last Admin: 05/01/18 14:33 Dose: 1 mg Admin: 05/01/18 09:47 Dose: 1 mg Admin: 05/01/18 04:35 Dose: 1 mg Admin: 04/30/18 23:39 Dose: 1 mg Sodium Chloride (Sodium Chloride 0.9%) 1,000 mls @ 125 mls/hr IV .Q8H [facility] Last Infusion: 05/04/18 08:16 Dose: 0 mls/hr Admin: 05/04/18 08:16 Dose: 125 mls/hr Infusion: 05/04/18 06:39 Dose: 125 mls/hr Admin: 05/04/18 02:16 Dose: Not Given Admin: 05/03/18 22:39 Dose: 125 mls/hr Infusion: 05/03/18 19:43 Dose: 0 mls/hr Admin: 05/03/18 11:43 Dose: 125 mls/hr Infusion: 05/03/18 11:43 Dose: 0 mls/hr Admin: 05/03/18 01:46 Dose: 125 mls/hr Infusion: 05/03/18 00:08 Dose: 125 mls/hr Admin: 05/02/18 16:08 Dose: 125 mls/hr Infusion: 05/02/18 12:29 Dose: 0 mls/hr Admin: 05/02/18 09:53 Dose: Not Given Admin: 05/02/18 04:29 Dose: 125 mls/hr Infusion: 05/02/18 01:41 Dose: 125 mls/hr Admin: 05/01/18 17:41 Dose: 125 mls/hr Infusion: 05/01/18 17:41 Dose: 125 mls/hr Admin: 05/01/18 10:49 Dose: 125 mls/hr Infusion: 05/01/18 10:07 Dose: 125 mls/hr Admin: 05/01/18 02:07 Dose: 125 mls/hr Infusion: 05/01/18 01:37 Dose: 125 mls/hr Admin: 04/30/18 17:37 Dose: 125 mls/hr Piperacillin Sod/Tazobactam (Sod 3.375 gm/ Dextrose) 50 mls @ 100 mls/hr IV Q6H [facility] Last Admin: 05/04/18 11:41 Dose: 100 mls/hr Infusion: 05/04/18 06:43 Dose: 0 mls/hr Admin: 05/04/18 06:13 Dose: 100 mls/hr Infusion: 05/04/18 00:36 Dose: 0 mls/hr Admin: 05/04/18 00:06 Dose: 100 mls/hr Infusion: 05/03/18 18:16 Dose: 100 mls/hr Admin: 05/03/18 17:46 Dose: 100 mls/hr Infusion: 05/03/18 12:10 Dose: 0 mls/hr Admin: 05/03/18 11:40 Dose: 100 mls/hr Infusion: 05/03/18 06:26 Dose: 0 mls/hr Admin: 05/03/18 05:56 Dose: 100 mls/hr Infusion: 05/03/18 00:15 Dose: 0 mls/hr Admin: 05/02/18 23:45 Dose: 100 mls/hr Infusion: 05/02/18 18:54 Dose: 100 mls/hr Admin: 05/02/18 18:24 Dose: 100 mls/hr Infusion: 05/02/18 12:25 Dose: 0 mls/hr Admin: 05/02/18 11:55 Dose: 100 mls/hr Infusion: 05/02/18 06:25 Dose: 0 mls/hr Admin: 05/02/18 05:25 Dose: 50 mls/hr Infusion: 05/02/18 01:22 Dose: 50 mls/hr Admin: 05/02/18 00:22 Dose: 50 mls/hr Infusion: 05/01/18 18:42 Dose: 50 mls/hr Admin: 05/01/18 17:42 Dose: 50 mls/hr Infusion: 05/01/18 13:35 Dose: 0 mls/hr Admin: 05/01/18 13:05 Dose: 100 mls/hr Infusion: 05/01/18 06:29 Dose: 0 mls/hr Admin: 05/01/18 05:59 Dose: 100 mls/hr Infusion: 05/01/18 00:07 Dose: 100 mls/hr Admin: 04/30/18 23:37 Dose: 100 mls/hr Infusion: 04/30/18 18:35 Dose: 100 mls/hr Admin: 04/30/18 18:05 Dose: 100 mls/hr Acetaminophen (Ofirmev) 1,000 mg in 100 mls @ 200 mls/hr IV Q6H [facility] Last Infusion: 05/04/18 11:12 Dose: 0 mls/hr Admin: 05/04/18 10:47 Dose: 200 mls/hr Infusion: 05/04/18 02:46 Dose: 0 mls/hr Admin: 05/04/18 02:16 Dose: 200 mls/hr Infusion: 05/03/18 21:13 Dose: 200 mls/hr Admin: 05/03/18 20:43 Dose: 200 mls/hr Infusion: 05/03/18 14:38 Dose: 0 mls/hr Admin: 05/03/18 14:08 Dose: 200 mls/hr Infusion: 05/03/18 08:30 Dose: 0 mls/hr Admin: 05/03/18 08:00 Dose: 200 mls/hr Infusion: 05/03/18 02:33 Dose: 0 mls/hr Admin: 05/03/18 02:03 Dose: 200 mls/hr Infusion: 05/02/18 20:36 Dose: 0 mls/hr Admin: 05/02/18 20:06 Dose: 200 mls/hr Infusion: 05/02/18 15:49 Dose: 0 mls/hr Admin: 05/02/18 14:57 Dose: 200 mls/hr Infusion: 05/02/18 08:43 Dose: 0 mls/hr Admin: 05/02/18 08:13 Dose: 200 mls/hr Infusion: 05/02/18 03:15 Dose: 200 mls/hr Admin: 05/02/18 02:45 Dose: 200 mls/hr Infusion: 05/01/18 20:42 Dose: 200 mls/hr Admin: 05/01/18 20:12 Dose: 200 mls/hr Lorazepam (Ativan) 1 mg IV Q6HP PRN PRN Reason: ANXIETY/SEDATION Last Admin: 05/02/18 00:22 Dose: 1 mg Metoclopramide HCl (Reglan) 10 mg IV Q6 [facility] Last Admin: 05/04/18 06:13 Dose: 10 mg Admin: 05/04/18 00:06 Dose: 10 mg Admin: 05/03/18 18:29 Dose: 10 mg Admin: 05/03/18 12:57 Dose: 10 mg Admin: 05/03/18 05:29 Dose: 10 mg Admin: 05/02/18 23:45 Dose: 10 mg Admin: 05/02/18 18:25 Dose: 10 mg Admin: 05/02/18 13:39 Dose: 10 mg Admin: 05/02/18 05:24 Dose: 10 mg Admin: 05/02/18 00:15 Dose: 10 mg Admin: 05/01/18 17:40 Dose: 10 mg Admin: 05/01/18 13:04 Dose: 10 mg Admin: 05/01/18 05:59 Dose: 10 mg Admin: 04/30/18 23:35 Dose: 10 mg Admin: 04/30/18 17:37 Dose: 10 mg Pantoprazole Sodium (Protonix) 40 mg PO BIDAC [facility] Last Admin: 05/04/18 07:52 Dose: 40 mg Sodium Chloride (Saline Flush) 10 ml IV Q8 [facility] Last Admin: 05/04/18 06:13 Dose: Not Given Admin: 05/03/18 20:44 Dose: 10 ml Admin: 05/03/18 14:07 Dose: Not Given Admin: 05/03/18 05:31 Dose: Not Given Admin: 05/02/18 20:08 Dose: Not Given Admin: 05/02/18 14:23 Dose: Admin: 05/02/18 04:29 Dose: Not Given Admin: 05/01/18 22:02 Dose: Not Given Admin: 05/01/18 13:12 Dose: Not Given Admin: 05/01/18 06:00 Dose: Not Given Admin: 04/30/18 23:41 Dose: Not Given Shift Summary 05/04/18 06:39 Shift Summary by Gladys Nation PT did well through night. Appeared to sleep most of night. No complaints of pain. Receiving scheduled Ofirmev. Midline abdominal incision with bnag and tagderm, small amount of serosanguineous drainage. Ambulated in hallway last night. No complaints of nausea or vomiting. Encourage IS use. Voids per urinal. No BM's tonight, 2 reported yesterday. BP's are improving on home meds, has been running 160's/80's. Uses call light for needs. Initialized on 05/04/18 06:39 - END OF NOTE
[2018-05-04] MEDS ORDERED: LISINOPRIL 20 MG TABLET PO SCH (17:21)
== END 2018-05-04 13:20 | disposition home or self-care (01) | DRG 337 ==
LOC: ED 17:04 → MEDSUR 21:32
PROVIDERS: ADMIT Family Medicine Adult Medicine; ATTEND Family Medicine Adult Medicine